=== PATIENT | male | born 1965 | race Caucasian/White ===

== ENCOUNTER 2016-08-01 06:05 | Day surgery (SDC) | payer BC ==
[~2016-08-01 06:05] MED LIST: OMEPRAZOLE20 M1 PO
[2016-08-01 07:12] LABS: BASOPHILS 0.7 % (0-2); EOSINOPHILS 7.2 % (0-7); HEMATOCRIT 40.7 % (42.0-54.0); HEMOGLOBIN 13.6 g/dL (13.5-17.5); IMMATURE GRANULOCYTES 0.1 % (0-5); LYMPHOCYTES 32.5 % (15-50); MCH 29.7 pg (26.0-34.0); MCHC 33.4 g/dL (31.0-37.0); MCV 88.9 fL (80.0-100.0); MEAN PLATELET VOLUME 9.9 fL (7.4-10.4); MONOCYTES 7.2 % (2-11); NEUTROPHILS 52.3 % (40-80); PLATELET COUNT 225 10x3/uL (130-400); RBC 4.58 10x6/uL (4.20-6.10); WBC 6.7 10x3/uL (4.8-10.8)
[2016-08-01 07:20] LABS: CALC OSMOLALITY 282 mosm/kg (275-300); CALCIUM 8.8 mg/dL (8.5-10.1); CARBON DIOXIDE 25.1 mmol/L (21.0-32.0); CHLORIDE - SERUM 105 mmol/L (98-107); CREATININE - SERUM 1.1 mg/dL (0.6-1.3); GLUCOSE 116 mg/dL (74-106); POTASSIUM - SERUM 4.5 mmol/L (3.5-5.1); SODIUM 140 mmol/L (136-145); UREA NITROGEN 22 mg/dL (7-18); eGFR NON AFRICAN AMERICAN 75 mL/min (90-120)
[2016-08-01] MEDS ORDERED: PROBIOTIC1 EAC1 PO (07:40)
[2016-08-01] MEDS ORDERED: HYDROCODONE-APA1 TAB PO (10:16)
== END 2016-08-01 12:10 | disposition home or self-care (01) ==
LOC: D.OPS 06:05
PROVIDERS: Surgery
DX: K81.1 Chronic cholecystitis (principal)